=== PATIENT | female | born 1965 | race Caucasian/White ===

== ENCOUNTER → 2019-09-22 09:39 | Outpatient (CLI) | payer BC, SELFPAY ==
[2019-09-22 10:17] LABS: Add Manual Diff / Slide Review NO; Basophils Absolute Auto 100 /uL (0-100); Basophils Percent Auto 1.9 % (0-2); Eosinophils Absolute Auto 200 /uL (0-450); Eosinophils Percent Auto 4.7 % (2-4); Hematocrit 36.8 % (36-46); Hemoglobin 12.5 g/dL (12.0-16.0); Lymphocytes Absolute Auto 1100 /uL (1100-4500); Lymphocytes Percent Auto 33.5 % (25-40); Mean Corpuscular Hemoglobin 31.1 PG (26-34); Mean Corpuscular Volume 91.2 fL (80-100); Monocytes Absolute Auto 300 /uL (0-900); Monocytes Percent Auto 9.6 % (3-14); Neutrophils Absolute Auto 1700 /uL (1500-7000); Neutrophils Percent Auto 50.3 % (50-75); Platelet Count 244 X10^3/uL (150-400); Red Blood Cell Count 4.04 X10^6/uL (4.0-5.2); Red Cell Distribution Width 13.7 % (11.6-14.8); White Blood Cell Count 3.3 X10^3/uL (4.5-11.0)
[2019-09-22 10:45] LABS: Alanine Aminotransferase 32 IU/L (<35); Albumin Globulin Ratio 1.4 (1.0-2.8); Alkaline Phosphatase 37 U/L (38-126); Aspartate Aminotransferase 25 IU/L (14-36); BUN Creatinine Ratio 18.6 (6-22); Bilirubin Total 0.6 mg/dL (0.2-1.3); Blood Urea Nitrogen 13 mg/dL (7-17); Calcium 9.3 mg/dL (8.4-10.2); Carbon Dioxide 29 mmol/L (22-32); Chloride 102 mmol/L (98-107); Cholesterol 250 mg/dL (140-199); Estimated Glomerular Filt Rate > 60.0 mL/min (>60); Globulin 2.8 g/dL (1.7-4.1); Glucose 88 mg/dL (70-100); HDL Cholesterol 74 mg/dL (40-60); HEMOLYSIS < 15 (0-50); LDL Cholesterol Calculated 163 mg/dL (<100); Potassium 4.2 mmol/L (3.4-5.1); Sodium 137 mmol/L (137-145); Total Protein 6.8 g/dL (6.3-8.2); Triglycerides 66 mg/dL (35-150)
[2019-09-22 11:13] LABS: Thyroid Stimulating Hormone 1.12 uIU/mL (0.47-4.68)
[2019-09-22 11:43] LABS: Free T3, Triiodothyronine Free 3.04 pg/mL (2.77-5.27); Free T4, Direct Thyroxine 1.87 ng/dL (0.78-2.19)
== END ==
PROVIDERS: PCP Nurse Practitioner; Referring Provider Nurse Practitioner; Visit Provider Nurse Practitioner
DX: Z00.00 Encounter for general adult medical examination without abnormal findings (principal); Z12.39 Encounter for other screening for malignant neoplasm of breast; Z85.3 Personal history of malignant neoplasm of breast
CPT/HCPCS: 36415; 80053; 80061; 84439; 84443; 84481; 85025

== ENCOUNTER → 2019-11-01 09:16 | Outpatient (CLI) | payer BC, SELFPAY ==
--- NOTE | 2019-11-01 09:17 | DI.MG.S_ITS ---
BILATERAL DIGITAL SCREENING MAMMOGRAM 3D/2D WITH CAD POST LUMPECTOMY: 11/01/2019 CLINICAL: Routine screening. Personal history of left breast cancer. Family history of breast cancer. Comparison is made to exams dated: 05/19/2017 mammogram, 03/13/2016 mammogram, and 03/05/2016 mammogram - [facility]. There are scattered fibroglandular elements in both breasts. Current study was also evaluated with a Computer Aided Detection (CAD) system. There are new regional fine coarse punctate calcifications in the left breast at 1 o'clock posterior depth. No other significant masses, calcifications, or other findings are seen in either breast. IMPRESSION: INCOMPLETE: NEEDS ADDITIONAL IMAGING EVALUATION The new regional fine coarse punctate calcifications in the left breast are indeterminate. Mediolateral, spot magnification, and additional views are recommended. This exam was interpreted at Station ID: [id number]. NOTE: For mammograms, a report in lay terms will be sent to the patient. Approximately 15% of breast malignancies will not be visualized mammographically. In the management of a palpable breast mass, a negative mammogram must not discourage biopsy of a clinically suspicious lesion. Electronically Signed By: Yan odell/debra:11/01/2019 11:37:08 copy to: Tamara Hamlin letter sent: Additional Imaging Needed ACR BI-RADS Category 0: Incomplete 3340F
== END ==
PROVIDERS: PCP Nurse Practitioner; Referring Provider Nurse Practitioner; Visit Provider Internal Medicine Hematology & Oncology
DX: Z12.31 Encounter for screening mammogram for malignant neoplasm of breast (principal); Z85.3 Personal history of malignant neoplasm of breast; Z80.3 Family history of malignant neoplasm of breast
CPT/HCPCS: 77063; 77067

== ENCOUNTER → 2019-11-03 12:15 | Outpatient (CLI) | payer BC, SELFPAY ==
--- NOTE | 2019-11-03 | DI.MG.S_ITS ---
UNILATERAL LEFT DIGITAL DIAGNOSTIC MAMMOGRAM 3D/2D WITH ADDITIONAL VIEWS: 11/03/2019 CLINICAL: Additional evaluation requested from prior study. Comparison is made to exams dated: 11/01/2019 mammogram - [facility], 05/19/2017 mammogram, and 03/13/2016 mammogram - [facility]. There are scattered fibroglandular elements in left breast. Redemonstration of regional coarse, heterogeneous pleomorphic calcifications in the left breast at 1 o'clock posterior depth which are new since comparison mammogram dated 05/19/2017. These calcifications are noted in close vicinity to site of prior partial mastectomy in the upper, outer quadrant. No other significant masses or calcifications are seen in the breast. IMPRESSION: SUSPICIOUS OF MALIGNANCY Regional coarse heterogeneous pleomorphic calcifications in the left breast are suspicious of malignancy. A stereotactic biopsy is recommended. Findings and recommendations were discussed with the patient by Dr. Lopez during today's visit. This exam was interpreted at Station ID: [id number]. NOTE: For mammograms, a report in lay terms will be sent to the patient. Approximately 15% of breast malignancies will not be visualized mammographically. In the management of a palpable breast mass, a negative mammogram must not discourage biopsy of a clinically suspicious lesion. Electronically Signed By: Eduardo Salazar M.D. aty/:11/03/2019 13:01:41 copy to: Tamara Hamlin letter sent: Biopsy Required ACR BI-RADS Category 4: Suspicious abnormality 3344F
== END ==
PROVIDERS: PCP Nurse Practitioner; Referring Provider Internal Medicine Hematology & Oncology; Visit Provider Internal Medicine Hematology & Oncology
DX: R92.8 Other abnormal and inconclusive findings on diagnostic imaging of breast (principal); R92.1 Mammographic calcification found on diagnostic imaging of breast
CPT/HCPCS: 77065; G0279

== ENCOUNTER → 2019-11-23 13:40 | Outpatient (CLI) | payer BC, SELFPAY ==
--- NOTE | 2019-11-23 13:42 | DI.MRI.S_ITS ---
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 TECHNIQUE: The patient was placed prone in a dedicated breast imaging coil. Precontrast axial STIR and 3D FLASH without fat saturation sequences were obtained. Both before and after bolus injection of contrast, sequential 1-minute axial 3D FLASH with fat saturation sequences for 3 time points, with subtraction images and maximum intensity projections (MIP's) generated. Delayed sagittal FLASH images with fat saturation were also obtained. Computer-aided detection, including computer algorithm analysis of MRI image data for lesion detection and characterization, pharmacokinetic analysis, with further physician review for interpretation, was performed. COMPARISON: Outside Facility, MG, MM TOMOSYNTHESIS DIAGNOSTIC BI, 05/19/2017, 9:09. [facility], MG, MM SCREENING MAMMO BI, 11/01/2019, 9:35. Outside Facility, , MRI BREAST BILATERAL W / WO CONTRAST, 05/16/2016, 9:26. FINDINGS: Image quality: Excellent. There is mild-moderate background parenchymal enhancement. There is heterogeneous fibroglandular tissue in the bilateral breast. Right breast: No suspicious mass, non-mass enhancement, or architectural distortion. No skin or nipple abnormalities. There are a few small, scattered patchy areas of enhancement demonstrating delayed phase persistent kinetics which appears similar to prior breast MRI and likely related to more prominent areas of background parenchymal enhancement. Left breast: There are postoperative changes from prior left partial mastectomy with scattered foci of susceptibility artifact consistent with surgical clips noted on comparison mammograms. There is a linear peripherally enhancing tract leading from the lateral aspect of the left breast skin surface towards the upper outer quadrant with associated susceptibility artifact from recent biopsy marker. This is compatible with recent stereotactic guided breast biopsy of suspicious calcifications. However, there is also minimal adjacent non-mass enhancement with delayed phase washout kinetics. This area spans approximately 2.5 cm in transverse dimension (image 87, series 11) and 2.0 cm in anterior posterior dimension (image 88, series 11). It also measures approximately 1.5 cm in craniocaudal dimension (image 92, series 18). Although some of the enhancement is likely related to post biopsy changes, this region correlates closely with regional calcifications seen in the upper outer quadrant on comparison mammogram dated 11/01/2019. Small additional foci of enhancement noted in the periphery of post operative changes from previous partial mastectomy. There is also linear non-mass enhancement extending anteriorly from previous partial mastectomy site towards the nipple along the lateral left breast/3:00 axis measuring approximately 3.3 cm in anteroposterior dimension (image 66, series 11). Enhancement appears to come within 5 mm of the nipple. No definite nipple abnormalities seen. There is associated delayed phase washout kinetics. This linear area of non-mass enhancement appears more bulbous posteriorly measuring approximately 8 mm in transverse dimension (image 67, series 11) and 8 mm in craniocaudal dimension (image 91, series 18). Miscellaneous: No axillary or internal mammary chain adenopathy identified on either side. Visualized portions of the upper abdomen and chest appear unremarkable. Normal bone marrow signal intensity. IMPRESSION: KNOWN BIOPSY PROVEN MALIGNANCY 1. Postsurgical changes from previous partial left mastectomy with suspicious non-mass enhancement adjacent to the distal margins of recent stereotactic biopsy tract at the level of biopsied calcifications. Area of suspicious non-mass enhancement correlates closely with distribution of suspicious regional calcifications noted on recent comparison mammogram. Additionally, there are small foci of enhancement surrounding the peripheral margins of previous partial mastectomy with new suspicious linear non-mass enhancement of the lateral left breast extending from the anterior margins of previous partial mastectomy site towards the left nipple. Enhancement approaches less than 5 mm from the nipple without definite nipple abnormalities. Findings are compatible with tumor recurrence. 2. Right breast without MRI evidence for malignancy. COMMENT: The imaging literature indicates that a negative contrast breast MRI examination has a high sensitivity and a moderate specificity for detecting and excluding invasive carcinomas to a detection threshold of 3-5 mm; nonetheless, appropriate clinical and mammographic follow-up are recommended. MRI is not sensitive for detecting DCIS (ductal carcinoma in situ) and may not detect large invasive neoplasms that show only minimal enhancement such as mucinous carcinoma. If there are suspicious calcifications or clinically worrisome palpable masses, then biopsy should still be considered. Invasive neoplasms can be hidden by co-existent and benign enhancement caused by mastitis, hormone therapy effects, radiation therapy, , and recent biopsy or surgery. False positive examinations can occur in a number of circumstances, including breasts that have recently been subject to invasive procedures and those that contain atypical ductal hyperplasia, hormonally stimulated glandular tissue, fat necrosis, or radial scars. This exam was interpreted at Station ID: [id number]. Electronically Signed By: Eduardo Salazar M.D. aty/:11/23/2019 18:01:34 ACR BI-RADS Category 6: Known biopsy proven malignancy 3346F
== END ==
PROVIDERS: PCP Nurse Practitioner; Referring Provider Internal Medicine Hematology & Oncology; Visit Provider Internal Medicine Hematology & Oncology
DX: D05.12 Intraductal carcinoma in situ of left breast (principal)
CPT/HCPCS: 77049; A9579

== ENCOUNTER → 2020-01-21 14:38 | Outpatient (CLI) | payer BC, SELFPAY ==
[2020-01-22 07:25] LABS: COVID19 Sendout Not Detected (Not Detect)
== END ==
PROVIDERS: PCP Nurse Practitioner; Visit Provider Physician Assistant
DX: Z01.818 Encounter for other preprocedural examination (principal)
CPT/HCPCS: 87635

== ENCOUNTER 2020-01-24 08:37 | Day surgery (SDC) | payer BC, SELFPAY ==
[2020-01-20 08:47] VITALS: BMI 26.2
[2020-01-24] VITALS (9 sets, daily range): BP systolic 97–141; BP diastolic 61–91; PULSE 66–89; RESP 7–16; TEMP 36.1–37.7; O2SAT 93–100; BMI 26.2
--- NOTE | 2020-01-24 | PATH_ITS ---
[facility] Accession Number: [id number] . 01 Material submitted: . PART A: lymph node - LEFT SENTINEL NODE PART B: breast - LEFT BREAST PART C: breast - LEFT BREAST INFERIOR MARGIN . 01 Clinical history: . LT MASTECTOMY . 01 Diagnosis: A. Left [place] Lymph Node, Dissection: Seven lymph nodes, negative for malignancy (0/7). . B. Left Breast, Mastectomy: Ductal carcinoma in situ, with the following features: 1. Architectural patterns: Comedo, cribriform, and micropapillary. 2. Nuclear grade: High. 3. Necrosis: Present central (comedo-type necrosis). 4. Extent of DCIS: Present on more than one slide, corresponding to tissue slices 10 and 12-17, spanning approximately 39 mm. 5. Calcifications: Present, in association with ductal carcinoma in situ and benign breast tissue. 6. Resection margins: Negative; distance to margins as follows: a. Junction between superficial superior and Posterior: 2.2 mm. b. Superficial superior: 4 mm. c. Superficial inferior: More than 10 mm. 7. Prognostic markers (repeated on block B25): a. Estrogen receptor status: Negative (0% tumor cells staining, internal controls are present). 8. Nipple: No evidence of Paget disease. 9. Regional lymph node status (see part A): Seven sentinel lymph nodes, negative for malignancy (0/7). 10. Pathologic stage: pTis pN0(sn). 11. Additional findings: a. Atypical lobular hyperplasia/lobular carcinoma in situ are present. b. Focal atypical ductal hyperplasia and focal flat epithelial atypia are present. c. Skin is present and is within normal limits. d. Skeletal muscle is not present for evaluation. e. Background breast: Fibrocystic change including stromal fibrosis, sclerosing adenosis, usual ductal hyperplasia, columnar cell change/columnar cell hyperplasia, microcysts, apocrine metaplasia, and reactive changes. f. Biopsy site changes and scarring consistent with prior lumpectomy sites are present. . C. Left Breast, Inferior Margin, Excision: Focal atypical lobular hyperplasia. Fibrofatty breast parenchyma with stromal fibrosis, focal usual ductal hyperplasia, apocrine metaplasia, columnar cell change/columnar hyperplasia, and reactive changes. Negative for ductal carcinoma in situ and invasive malignancy, including margins assessment. MRV 01/27/2020 2004 Local . 01 Electronically signed: . Becky Wright MD, Pathologist NPI- [id number] . 01 Gross description: . (A) Received in formalin, labeled left sentinel node, are multiple pieces of gusman-yellow adipose tissue (3.5 x 3.0 x 0.5 cm in aggregate) containing a blue-stained 1.3 x 1.0 x 0.3 cm lymph node and multiple gusman lymph nodes (0.3 x 0.2 x 0.1 cm-0.7 x 0.4 x 0.2 cm). Section code: (A1) blue-stained lymph node, serially sectioned, entirely submitted; (A2) multiple intact lymph nodes; (A3) three bisected lymph nodes. . (B) Received: In formalin, labeled left breast, short stitch superior, long lateral. Specimen: Left simple mastectomy. Weight: 255 grams. Measurement: 4.5 cm anterior to posterior, 10.7 cm medial to lateral, and 11.0 cm superior to inferior. Skin Ellipse: Present, gusman-white, focally stained blue and otherwise unremarkable, measuring 6.2 x 4.5 cm. Nipple/Areola: 1.7 x 1.5 cm diameter everted nipple within a 3.5 x 3.0 cm diameter areola. No scar is identified. Axillary Tail: Absent. Margins: The specimen is oriented by surgeon with shot superior suture, long lateral suture. The posterior surface is smooth, covered by fascia, and is inked black. The anterior soft tissue margins are unremarkable, adjacent to the skin, are inked blue for superficial-superior and green for superficial-inferior. Slices: Serially sectioned medial to lateral into 19 slices. Lesions: No definitive nodules, masses or lesions are identified. A mcfarland-white, irregularly firm, gritty, ill-defined area (5.0 x 4.0 x 2.0 cm) is identified within slices 13-19 located less than 0.1 cm from the anterior-superior and anterior-inferior resection margins, and 0.5 cm from the posterior resection margin. A biopsy clip is identified within this tissue in slice 14. The remaining cut surface is yellow, lobular adipose tissue with focally densely fibrous areas throughout. Sections: B1: Nipple, bisected, entirely submitted. B2: Skin, roofing sales representative. B3: Slice 1, most medial slice, roofing sales representative perpendicular sections. B4: Slice 4, roofing sales representative fibrous tissue. B5, B6: Slice 5, roofing sales representative fibrous tissue. B7-B9: Slice 6, roofing sales representative fibrous tissue, submitted superior to inferior. B10, B11: Slice 7, roofing sales representative fibrous tissue. B12-B14: Slice 8, roofing sales representative fibrous tissue, submitted superior to inferior. B15-B16, B17: Slice 9, roofing sales representative fibrous tissue, submitted superior to inferior. B18-B19, B20: Slice 10, roofing sales representative fibrous tissue, submitted anterior to posterior and superior to inferior with B20 directly inferior to B18. B21-B22, B23: Slice 11, roofing sales representative fibrous tissue submitted anterior to posterior with B23 inferior but not adjacent. B24-B25, B26: Slice 12, roofing sales representative fibrous tissue, submitted superior to inferior with tissue from B26 at the most inferior margin not adjacent to the other tissue. This tissue and all preceding slices are not included in the measurement of the irregular fibrous gritty tissue. B27-B28, B29-B30: Slice 13, irregular fibrous gritty tissue, submitted anterior to posterior and superior to inferior, these slices are all adjacent. This tissue is directly medial to where the biopsy marker was found in slice 14. B31-B32, B33-B34: Slice 14, fibrous gritty tissue, location of biopsy marker, submitted anterior to posterior and superior to inferior, all slices are adjacent. B35, B36, B37-B38: Slice 15, roofing sales representative fibrous gritty tissue, slices not adjacent unless where indicated, tissue directly lateral to the biopsy marker found in slice 14. B39-B40: Slice 16, roofing sales representative fibrous gritty tissue, submitted superior to inferior. B41-B43: Slice 17, roofing sales representative fibrous gritty tissue, submitted superior to inferior. B44-B46: Slice 18, roofing sales representative fibrous gritty tissue, submitted superior to inferior. B47-B48: Slice 19, most lateral slice, roofing sales representative perpendicular sections. Additions: Additional tissue has been submitted from the following slices as follows: B49: Slice 15. B50: Slice 17. B51: Slice 18. B52: Slice 19. (ALEXIS:[id number]) Dr. Wright reviewed the gross on part B on 01/26/2020. (MNT:[id number]) . (C) Received in formalin, labeled left breast inferior margin, is an unoriented piece of gusman-yellow rubbery adipose tissue (28 grams, 8.5 x 5.0 x 1.2 cm) containing one smooth shiny fascia-covered surface. No skin or localization wire is present. The specimen is serially sectioned into 16 slices and has a gusman-yellow, lobular, unremarkable cut surface. No nodules, masses or lesions are identified. The smooth surface is inked purple and the remaining surface is inked blue. Section code: (C1-C2) slice 1, perpendicularly sectioned; (C3-C4) slice 2; (C5-C6) slice 3; (C7-C8) slice 4; (C9-C10) slice 5; (C11-C12) slice 6; (C13-C14) slice 7; (C15-C16) slice 8; (C17-C18) slice 9; (C19-C20) slice 10; (C21-C22) slice 11; (C23-C24) slice 12; (C25-C26) slice 13; (C27-C28) slice 14; (C29-C30) slice 15; (C31-C32) slice 16, perpendicularly sectioned. Specimen entirely submitted. . Note: Approximate total fixation time in formalin for all specimens is calculated to be 41 hours 30 minutes, calculated using a collection date of 01/24/2020 with no collection time given. (ALEXIS:[id number]) /MRV 01/27/2020 [facility] Local . 01 Microscopic: . Block B25. A focus of atypical single cells is evaluated with p63 with appropriately staining external controls. While most of the focus disappears on the tissue section, p63 is retained in the area of interest, excluding microinvasive carcinoma. Deeper H/E levels are also examined. Estrogen receptor is repeated on block B25 (given the reported absence of internal controls on the index biopsy) and DCIS is negative for ER with positive internal controls. . Blocks B18, B46 and C10: E-cadherin, and beta catenin on B18 only, immunostains are performed in order to assess involvement of the lactiferous ducts by ductal versus lobular in situ neoplasia (B18), margins assessment (B46), and presence of lobular neoplasia (C10); the areas of interest demonstrate findings in support of involvement of the lactiferous ducts by DCIS and atypical lobular hyperplasia, and focal atypical lobular hyperplasia in part C. . * This test was developed and its performance characteristics determined by [employer]. It has not been cleared or approved by the U.S. Food and Drug Administration. The FDA has determined that such clearance or approval is not necessary. This test is used for clinical purposes. It should not be regarded as investigational or for research. . 01 Pathologist provided ICD-10: D05.12, D05.02 . 01 CPT . 026902, 318409, 904697, [id number], [id number] Performed at: 01 [facility] [address] [place] [address], [place], [place] [id number] MD Yan Lal MD Phone: [phone]
--- NOTE | 2020-01-24 08:40 | DI.NM.S_ITS ---
PROCEDURE: NM SENTINEL NODE W IMAGING RADIOPHARMACEUTICAL: 0.5-1.0 mCi Millipore filtered Tc-99m sulfur colloid. INDICATIONS: preop TECHNIQUE: The area around the nipple was prepped and draped in a sterile fashion. Tc-99m sulfur colloid was injected intra-dermally in the outer edge of the areola in the left breast. Images were obtained subsequently. A body contour outline was obtained. FINDINGS: There are 4-5 lymph node(s) in the ipsilateral axilla. IMPRESSION: 4-5 left axillary lymph nodes are identified. Dictated by: Singh Lopez M.D. on 01/24/2020 at 12:38 Approved by: Singh Lopez M.D. on 01/24/2020 at 12:41
[2020-01-24] MEDS: LACTATED RINGERS 1,000 ML 100 ML IV ×2 (10:10→13:40)
--- NOTE | 2020-01-24 10:49 | PM.HP.1 ---
History of Present Illness History of Present Illness Date Patient Seen: 01/24/20 Time Patient Seen: 10:49 Chief complaint: [id number] Lt Mastectomy Narrative: Patient is a 54-year-old female who is here for a left mastectomy and sentinel lymph node biopsy. She has a diagnosis of recurrence left breast ductal carcinoma in situ. Please refer to the H& P from December of 2019 for further detail. There has been no interval change in her health. Patient History Medical History Alcohol use (Acute) DCIS (ductal carcinoma in situ) (Acute) Malaria (Acute ~2005) Retinal detachment (Acute ~2015) Snoring (Acute) Soft palate edema (Acute) Thyroid nodule (Acute ~2017) Surgical History Anesthesia (Resolved) Cataract extraction status, left eye (Acute) History of discectomy (Resolved ~2009) History of left knee surgery (Resolved ~2000) History of lumpectomy (Resolved ~2016) Retinal detachment (Resolved) Family & Social History Family History Father Prostate cancer Hypertension Dementia Mother Pulmonary embolism Grandfather History of heart disease Grandfather History of emphysema Grandmother Hypertension Social History: household members spouse,children Prior Living Arrangements House Safety & Behavioral: Feels Safe in Current Yes Environment Been Physically Hurt or No Threatened By a Person Suicidal Ideation Description None Suicide Plan Description No Plan Tobacco & Substance use: Smoking Status Never smoker alcohol intake current alcohol intake frequency 3 or more drinks per day Substance Use Type does not use Meds Home Medications and Allergies Home Medications Medication Instructions Recorded Confirmed Type cholecalciferol (vitamin D3) 1,000 unit PO DAILY 10/27/19 01/20/20 History Allergies Allergy/AdvReac Type Severity Reaction Status Date / Time No Known Drug Allergies Allergy Verified 01/24/20 09:04 Review of Systems Review of Systems Narrative: A 10 point review of systems is negative except as noted in the HPI Exam Vital Signs (past 8 hours): - 01/24/20 08:57 Temperature 99.9 F H Pulse Rate 89 Respiratory Rate 16 Blood Pressure 141/91 H Pulse Oximetry 99 Oxygen Delivery Method Room Air Oxygen Flow Rate 0 Narrative Exam Narrative: General-no acute distress, well nourished HEENT-moist mucous membranes, no scleral icterus Neck-supple, no lymphadenopathy Chest- non labored respirations, clear to auscultation bilaterally Cardiac-regular rate no peripheral edema Abdomen-soft, nontender, non distended Extremities-warm, well perfused Neurological-alert and oriented, no focal deficits Assessment & Plan Assessment & Plan narrative: 54-year-old woman with recurrent left breast ductal carcinoma in situ here for a left mastectomy and sentinel lymph node biopsy. We discussed the technical nature of the operation him the expected postoperative course and the as surgical risks including bleeding infection seroma recurrence axillary nerve injury. Her questions have been answered she is in agreement with this plan will proceed to the operating room. COVID-19 COVID-19 status: Negative Result date/Date tested (Pos, Neg/Pending): 01/20/20
[2020-01-24] MEDS: CEFAZOLIN 2 GM/100 ML FROZ.PIGGY IV (11:05)
[2020-01-24] MEDS: METHYLENE BLUE 50 MG/10 ML VIAL INJ (11:19)
[2020-01-24] MEDS: BUPIVACAINE 0.25% (PF) VIAL 30 ML INJ (11:20)
--- NOTE | 2020-01-24 11:36 | SUR.OPER ---
Supine on padded OR bed, head on pillow, arms secured on padded arm boards at <90 degrees abduction, legs uncrossed, safety belt at thigh, tape over blanket over lower legs.
[2020-01-24] MEDS: ACETAMINOPHEN IV 1,000 MG/100 ML VIAL 400 MG IV (12:10)
--- NOTE | 2020-01-24 13:41 | P.OP_ITS ---
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 Specimen(s): other (Left breast, left sentinel node(s), left breast inferior margin) Estimated Blood Loss (mL): 50 Procedure in detail: Patient was brought to the operating room placed supine on the table. Bilateral lower extremity compression devices were applied. She received 2 g of Ancef prior to skin incision. She was intubated with an endotracheal tube. She was then prepped and draped in sterile fashion. Time- out was performed ensure the correct patient procedure necessary equipment within the operating room. I began with the left sentinel lymph node dissection. She had been previously injected with radio labeled colloid. I injected 2 mL of methylene blue into the periareolar tissue and massaged it into the breast for 5 minutes. Using a hand held gamma probe I localized transcutaneously the are of increased radioa ctivity. A linear incision in the hair-bearing area of the left axilla and the subcutaneous tissues were divided with electrocautery. The left axillary tissue was carefully dissected towards the area of maximal radioactivity. A sentinel lymph node was identified its identity confirmed by its blue appearance. I was ligated with 3-0 silk and transected sharply. I returned the gamma probe to the field and there continued to be increased radioactivity and a second sentinel lymph node was identified and dissected in similar fashion. The axilla was inspected for hemostasis and then the subcutaneous tissue was closed with the 3 0 Vicryl suture and skin closed with 4 Monocryl followed by Demand. Next the left mastectomy was performed. An elliptical incision around the nipple areola complex was made with the knife. The subcutaneous tissue was divided with electrocautery. Skin flaps were raised to separate the breast tissue from the skin along the subdermal plexus. The dissection was extended superior to the clavicle, medial to the sternum, inferior the the inframamary fold and lateral to the anterior border of the latisimus dorsi. Next the breast tissue was from the underlying pectoralis fascia. The breast was passed off the field marked short stitch superior long stitch lateral. I inspected the flaps and the inferior flap was slightly thicken then I wanted so I removed a a margin of the inferior flap which was passed off the field labeled as inferior margin. A 19 [place] drain was placed into the cavity and secured. The wound was copiously irrigated and homeostasis was ensured. The mastectomy was closed with 3 0 Vicryl for the subcutaneous tissue and the skin was closed with 4 0 Monocryl followed by the application of Dermabond. Patient tolerated procedure well she emerged from anesthesia was extubated and transferred to recovery room in stable condition. Complications: none Post-operative Condition: stable
[2020-01-24] MEDS: OXYCODONE IR 5 MG TABLET PO (14:14)
--- NOTE | 2020-01-24 14:50 | SUR.PHASEII ---
Assumed care from MIMI Freed. Dr. Orozco to bedside, talked to pt. Pt wanting to sleep. Call alonso at bedside.
--- NOTE | 2020-01-24 15:29 | SUR.PHASEII ---
Pt ready to go home, assisted to dress. Dressings remained c/d/i. Bulb emptying instrucyted, pt voiced an understanding. Awaiting pt's to return.
== END 2020-01-24 16:00 | disposition home or self-care (01) ==
LOC: OR 08:40 → AC 12:00
PROVIDERS: PCP Nurse Practitioner; Referring Provider Surgery; Visit Provider Surgery
PROC: 0HTU0ZZ Resection of Left Breast, Open Approach (ICD-10-PCS; CPT 19303; principal; 2020-01-24 11:15)
DX: D05.12 Intraductal carcinoma in situ of left breast (principal); D05.02 Lobular carcinoma in situ of left breast
CPT/HCPCS: 19303; 38500; 78195; A9541; J0131; J0690; J1100; J1170; J2250; J2405; J2704; J3010; Q9968

== ENCOUNTER → 2020-10-13 10:50 | Outpatient (CLI) | payer BC, SELFPAY ==
[2020-10-13 11:17] LABS: Add Manual Diff / Slide Review NO; Basophils Absolute Auto 100 /uL (0-100); Basophils Percent Auto 1.4 % (0-2); Eosinophils Absolute Auto 200 /uL (0-450); Eosinophils Percent Auto 3.2 % (2-4); Hematocrit 38.1 % (36-46); Hemoglobin 12.7 g/dL (12.0-16.0); Lymphocytes Absolute Auto 1500 /uL (1100-4500); Lymphocytes Percent Auto 29.2 % (25-40); Mean Corpuscular HGB Conc 33.3 % (30-36); Mean Corpuscular Hemoglobin 30.4 PG (26-34); Mean Corpuscular Volume 91.3 fL (80-100); Monocytes Absolute Auto 400 /uL (0-900); Monocytes Percent Auto 7.9 % (3-14); Neutrophils Absolute Auto 3000 /uL (1500-7000); Neutrophils Percent Auto 58.3 % (50-75); Platelet Count 238 X10^3/uL (150-400); Red Blood Cell Count 4.18 X10^6/uL (4.0-5.2); Red Cell Distribution Width 13.1 % (11.6-14.8); White Blood Cell Count 5.1 X10^3/uL (4.5-11.0)
[2020-10-13 11:46] LABS: Alanine Aminotransferase 21 IU/L (<35); Albumin 4.1 g/dL (3.5-5.0); Albumin Globulin Ratio 1.4 (1.0-2.8); Alkaline Phosphatase 40 U/L (38-126); Aspartate Aminotransferase 24 IU/L (14-36); BUN Creatinine Ratio 26.1 (6-22); Bilirubin Total 0.5 mg/dL (0.2-1.3); Blood Urea Nitrogen 23 mg/dL (7-17); Calcium 9.1 mg/dL (8.4-10.2); Carbon Dioxide 29 mmol/L (22-32); Chloride 103 mmol/L (98-107); Estimated Glomerular Filt Rate > 60.0 mL/min (>60); Glucose 93 mg/dL (70-100); HEMOLYSIS < 15 (0-50); Potassium 4.1 mmol/L (3.4-5.1); Sodium 136 mmol/L (137-145); Total Protein 7.1 g/dL (6.3-8.2)
== END ==
PROVIDERS: PCP Nurse Practitioner; Referring Provider Internal Medicine Hematology & Oncology; Visit Provider Internal Medicine Hematology & Oncology
DX: D05.10 Intraductal carcinoma in situ of unspecified breast (principal)
CPT/HCPCS: 36415; 80053; 85025

== ENCOUNTER → 2020-11-12 11:19 | Outpatient (CLI) | payer BC, SELFPAY ==
--- NOTE | 2020-11-12 11:19 | DI.MG.S_ITS ---
UNILATERAL RIGHT DIGITAL SCREENING MAMMOGRAM 3D/2D WITH CAD POST MASTECTOMY: 11/12/2020 CLINICAL: Routine screening. Personal history of left breast cancer. Family history of breast cancer. Comparison is made to exams dated: 11/23/2019 breast MRI, 11/01/2019 mammogram - [facility], and 05/19/2017 mammogram - [facility]. The tissue of right breast is heterogeneously dense. This may lower the sensitivity of mammography. Current study was also evaluated with a Computer Aided Detection (CAD) system. There are benign calcifications in the right breast. No significant masses, calcifications, or other findings are seen in the breast. There has been no significant interval change. IMPRESSION: BENIGN There is no mammographic evidence of malignancy. A 1 year screening mammogram is recommended. This exam was interpreted at Station ID: [id number]. NOTE: For mammograms, a report in lay terms will be sent to the patient. Approximately 15% of breast malignancies will not be visualized mammographically. In the management of a palpable breast mass, a negative mammogram must not discourage biopsy of a clinically suspicious lesion. Electronically Signed By: Yan odell/debra:11/12/2020 14:27:40 copy to: [facility] TOLLIVER letter sent: Normal Exam ACR BI-RADS Category 2: Benign Finding(s) 3342F
== END ==
PROVIDERS: PCP Nurse Practitioner; Referring Provider Internal Medicine Hematology & Oncology; Visit Provider Internal Medicine Hematology & Oncology
DX: Z12.31 Encounter for screening mammogram for malignant neoplasm of breast (principal); D05.12 Intraductal carcinoma in situ of left breast; Z80.3 Family history of malignant neoplasm of breast
CPT/HCPCS: 77063; 77067

== ENCOUNTER → 2021-04-30 07:06 | Outpatient (CLI) | payer BC, SELFPAY ==
--- NOTE | 2021-04-30 07:09 | DI.US.S_ITS ---
PROCEDURE: US PELVIC COMPLETE INDICATIONS: PMB TECHNIQUE: Real-time scanning was performed of the pelvic organs, with image documentation. Additional endovaginal scanning was necessary due to incomplete visualization of the adnexal and endometrial structures by transabdominal scanning. COMPARISON: None. FINDINGS: Uterus: The uterus measures 8.0 x 4.1 x 5.7 centimeters. Endometrial thickness is 3.3 millimeters. Multiple uterine fibroids are seen. An intramural medial posterior fibroid measures 1.9 x 1.3 x 2.2 centimeters. A right anterior intramural fibroid measures 1.6 x 1.1 x 1.6 centimeters. No cervical polyp is identified. Ovaries: The right ovary is not seen. The left ovary measures 2.1 x 1.0 x 2.1 centimeters. Other: No pathologic free abdominal or pelvic fluid. IMPRESSION: 1. 2 intramural uterine fibroids as above. 2. No acute abnormality. Dictated by: Miguelangel Fang M.D. on 04/30/2021 at 15:07 Approved by: Miguelangel Fang M.D. on 04/30/2021 at 15:09
[2021-04-30 09:13] LABS: Cholesterol 270 mg/dL (140-199); HDL Cholesterol 106 mg/dL (40-60); LDL Cholesterol Calculated 152 mg/dL (<100); Triglycerides 61 mg/dL (35-150)
[2021-04-30 09:29] LABS: Follicle Stimulating Hormone 74.7 mIU/mL
[2021-04-30 09:34] LABS: Free T4, Direct Thyroxine 1.13 ng/dL (0.78-2.19)
[2021-04-30 09:48] LABS: Thyroid Stimulating Hormone 1.38 uIU/mL (0.47-4.68)
== END ==
PROVIDERS: PCP Nurse Practitioner; Referring Provider Nurse Practitioner; Visit Provider Nurse Practitioner
DX: Z00.00 Encounter for general adult medical examination without abnormal findings (principal); N95.0 Postmenopausal bleeding; D25.1 Intramural leiomyoma of uterus
CPT/HCPCS: 36415; 76830; 76856; 80061; 83001; 84439; 84443; 84481

== ENCOUNTER → 2021-05-15 09:10 | Outpatient (CLI) | payer BC, SELFPAY ==
[2021-05-15 11:22] LABS: COVID19 -Nasal RAPID Negative (Negative)
== END ==
PROVIDERS: PCP Nurse Practitioner; Visit Provider Surgery
DX: Z01.812 Encounter for preprocedural laboratory examination (principal); Z20.822 Contact with and (suspected) exposure to COVID-19
CPT/HCPCS: 87635; C9803

== ENCOUNTER 2021-05-16 12:29 | Day surgery (SDC) | payer BC, SELFPAY ==
--- NOTE | 2021-05-16 | PATH_ITS ---
[facility] Accession Number: [id number] . 01 Material submitted: . sigmoid colon - SIGMOID COLON POLYP X2 . 02 Diagnosis: Sigmoid Colon Polyps, Biopsies: Fragments of tubular adenoma (two polyps removed). MRV 05/20/2021 1345 Local . 02 Electronically signed: . Carlos Ocampo MD, PhD, Pathologist NPI- [id number] . 01 Gross description: . SIGMOID COLON POLYP X2: Received in formalin are multiple fragment(s) of gusman, soft tissue measuring 1.0 x 0.6 x 0.2 cm in aggregate submitted entirely in 1 cassette(s) /MARIA LUZ 05/17/2021 0224 Local . 02 Pathologist provided ICD-10: D12.5 . 02 CPT . 669683 Performed at: 01 [facility] Cyt[facility] [address] [id number] MD Yan Lal MD Phone: [phone] Performed at: 02 [facility] [address] [place], [place] [id number] MD Cally King MD Phone: [phone]
[2021-05-16 12:46] VITALS: BP 125/78; PULSE 92; RESP 16; TEMP 36.8; O2SAT 98; BMI 22.4
--- NOTE | 2021-05-16 13:54 | PM.HP.1 ---
History of Present Illness History of Present Illness Date Patient Seen: 05/16/21 Time Patient Seen: 13:55 Chief complaint: SCREENING COLONOSCOPY Narrative: The patient presents for colorectal sreening. They have never had any previous examination for such. No personal or family history of colon cancer. On further history denies any recent gastrointestinal symptoms. No nausea, vomiting, abdominal pain, loss of appetite, unexplained weight loss, change in bowel habits, diarrhea, constipation, melena, hematochezia, or bright red blood per rectum. Patient History Medical History Alcohol use DCIS (ductal carcinoma in situ) Malaria (~2005) Retinal detachment (~2015) Snoring Soft palate edema Thyroid nodule (~2017) Witnessed episode of apnea Surgical History Anesthesia Cataract extraction status, left eye History of discectomy (~2009) History of left knee surgery (~2000) History of lumpectomy (~2016) Retinal detachment Family & Social History Family History Father Prostate cancer Hypertension Dementia Mother Pulmonary embolism Grandfather History of heart disease Grandfather History of emphysema Grandmother Hypertension Social History: household members spouse,children Tobacco & Substance use: Smoking Status Never smoker alcohol intake current alcohol intake frequency 3 or more drinks per day Substance Use Type does not use Meds Home Medications and Allergies Home Medications Medication Instructions Recorded Confirmed Type No Known Home Medications 05/16/21 05/16/21 History Allergies Allergy/AdvReac Type Severity Reaction Status Date / Time No Known Drug Allergies Allergy Verified 05/16/21 12:46 Exam Vital Signs (past 8 hours): - 05/16/21 12:46 Temperature 98.2 F Pulse Rate 92 H Respiratory Rate 16 Blood Pressure 125/78 Pulse Oximetry 98 Oxygen Delivery Method Room Air Narrative Exam Narrative: Constitutional-She is oriented to person, place and time. No apparent distress Cardiovascular- regular rate, no peripheral edema Pulmonary-unlabored respiratory effort, no audible wheezing Abdominal-soft, non-tender, non-distended Musculoskeletal-no cyanosis or clubbing Neurological-nonfocal, normal strength throughout, Skin-warm and dry Assessment & Plan Assessment & Plan narrative: The patient requires colorectal screening and colonoscopy is recommended. Technical details were discussed. Risks, benefits, alternatives explained. Risks including but not limited to myocardial infarction, aspiration, bleeding, pain, missed lesion, incomplete examination, need for further radiographic studies, colonic perforation, and need for major abdominal surgery were discussed. All questions were answered to their satisfaction, and they are in agreement with this plan. Time Spent With Patient Critical Care time: I spent a total of [] minutes of critical care time on this patient's care today; this time is exclusive of procedural time.
[2021-05-16] MEDS: MIDAZOLAM 5 MG/5 ML VIAL IV (14:13)
[2021-05-16] MEDS: fentaNYL 250 MCG/5 ML INJ IV (14:15)
--- NOTE | 2021-05-16 14:25 | PM.OP.COLON ---
Operative Date/Time/Diagnoses Date of procedure: 05/16/21 Time of procedure: 14:25 Pre-op diagnosis: Screening Post-op diagnosis: same Procedure & Clinicians Study performed: Colonoscopy Same procedure as scheduled: Yes Indications: Screening Surgeon: Kalpesh Orozco Procedure Notes Procedure in detail: Medications: Conscious sedation using 9mg IV midazolam and 250mcg IV of fentanyl The history and physical was performed/updated and the patient is ASA class is 2. The procedure was discussed in detail with the patient. Potential risks complications including infection, bleeding, missed diagnosis, perforation, need for surgery, and were explained. Their questions were answered and informed consent was obtained. Patient was brought to the procedure room and placed standard monitoring equipment. The patient's vital signs were monitored continuously throughout the entire procedure. Prior to starting time-out was performed. The patient was placed in the left lateral recumbent position. Procedural sedation was administered. Examination began with a thorough inspection of the perianal area there was no evidence of fissures, fistulae, external hemorrhoids or cutaneous malignancy. The colonoscopy scope was then placed into the anal canal and was advanced to the cecum, which was identified by the ileocecal valve, the appendiceal orifice and the confluence of the taenia. The scope was then slowly withdrawn examining colon thoroughly in all directions, irrigating it of any residual stool. FINDINGS 1. Two 5 mm polyps in the sigmoid colon removed with biopsy forceps. 2. Tortuous colon The patient tolerated the procedure well. They will be discharged once criteria are met. The prep was of good/excellent quality. The withdrawl time was 7 minutes. The sedation time was 23 minutes. Specimen(s): other (Sigmoid colon) Complications: none Impression: Colonic polyps Post-procedure Recommendations: Colonoscopy in 5 years Disposition: same day surgery
[2021-05-16 14:28] VITALS: BP 113/62; PULSE 73; RESP 13; TEMP 36.3; O2SAT 95
[2021-05-16 14:33] VITALS: BP 103/53; PULSE 72; RESP 12; O2SAT 97
[2021-05-16 14:38] VITALS: BP 114/56; PULSE 81; RESP 12; O2SAT 97
[2021-05-16 14:45] VITALS: BP 127/81; PULSE 90; RESP 16; TEMP 36.3; O2SAT 99
--- NOTE | 2021-05-16 14:48 | SUR.PHASEII ---
Pt transferred to [facility]. SBAR report to Rae LE
[2021-05-16 14:50] VITALS: BP 127/81; PULSE 79; RESP 16; TEMP 36.6; O2SAT 99
== END 2021-05-16 15:10 | disposition home or self-care (01) ==
PROVIDERS: PCP Nurse Practitioner; Referring Provider Surgery; Visit Provider Surgery
PROC: 0DJD8ZZ Inspection of Lower Intestinal Tract, Via Natural or Artificial Opening Endoscopic (ICD-10-PCS; CPT 45378; principal; 2021-05-16 13:45)
DX: Z12.11 Encounter for screening for malignant neoplasm of colon (principal); D12.5 Benign neoplasm of sigmoid colon
CPT/HCPCS: 45380; 45378; 99152; J2250; J3010

== ENCOUNTER → 2021-11-26 14:47 | Outpatient (CLI) | payer BC, SELFPAY ==
--- NOTE | 2021-11-26 14:48 | DI.MG.S_ITS ---
UNILATERAL RIGHT DIGITAL SCREENING MAMMOGRAM 3D/2D WITH CAD POST MASTECTOMY: 11/26/2021 CLINICAL: Routine screening. Personal history of right breast cancer. Family history of breast cancer. Comparison is made to exams dated: 11/12/2020 mammogram, 11/01/2019 mammogram - [facility], and 05/19/2017 mammogram - [facility]. The tissue of right breast is heterogeneously dense. This may lower the sensitivity of mammography. Current study was also evaluated with a Computer Aided Detection (CAD) system. No significant masses, calcifications, or other findings are seen in the breast. There has been no significant interval change. IMPRESSION: NEGATIVE There is no mammographic evidence of malignancy. A 1 year screening mammogram is recommended. This exam was interpreted at Station ID: [id number]. NOTE: For mammograms, a report in lay terms will be sent to the patient. Approximately 15% of breast malignancies will not be visualized mammographically. In the management of a palpable breast mass, a negative mammogram must not discourage biopsy of a clinically suspicious lesion. Electronically Signed By: Tahir wagner/debra:11/26/2021 16:17:56 copy to: [facility] TOLLIVER letter sent: Normal Exam ACR BI-RADS Category 1: Negative 3341F
== END ==
PROVIDERS: PCP Nurse Practitioner; Referring Provider Nurse Practitioner; Visit Provider Nurse Practitioner
DX: Z12.31 Encounter for screening mammogram for malignant neoplasm of breast (principal); D05.12 Intraductal carcinoma in situ of left breast; Z80.3 Family history of malignant neoplasm of breast
CPT/HCPCS: 77063; 77067

== ENCOUNTER → 2021-12-13 14:53 | Outpatient (CLI) | payer BC, SELFPAY ==
--- NOTE | 2021-12-13 14:54 | DI.US.S_ITS ---
PROCEDURE: US THYROID INDICATIONS: Soft lesion at base of thyroid right hand side TECHNIQUE: Real-time scanning was performed of the thyroid gland, with image documentation. COMPARISON: None. FINDINGS: Right: Thyroid lobe measures 5.2 x 1.3 x 1.6 cm, and is diffusely heterogeneous in echotexture. Left: Thyroid lobe measures 5.2 x 1 1 by point 5 cm, and is diffusely heterogeneous in echotexture. Isthmus: 2.1 mm thick. Nodule number: 1 Location: Left superior Size: 0.6 x 0.4 x 0.5 cm. Composition: Predominantly cystic Echogenicity: Predominantly anechoic Shape: wider than tall. Margins: Smooth Echogenic foci: None Total points: 0 ACR TI-RADS category: Benign Nodule number: 2 Location: Left inferior Size: 1.9 x 1.2 x 1.3 cm. Composition: Solid Echogenicity: Predominantly isoechoic Shape: wider than tall. Margins: Smooth Echogenic foci: Not requested. Total points: 3 ACR TI-RADS category: Mildly suspicious Nodule number: 3 Location: Right mid Size: 1.0 x 0.6 x 0.8 cm. Composition: Solid Echogenicity: Heterogeneous Shape: wider than tall. Margins: Smooth Echogenic foci: Not requested. Total points: 3 ACR TI-RADS category: Mildly suspicious Nodule number: 4 Location: Right inferior Size: 0.5 x 0.5 x 0.5 cm. Composition: Predominantly solid Echogenicity: Predominantly isoechoic Shape: wider than tall. Margins: Smooth Echogenic foci: Not requested. Total points: 3 ACR TI-RADS category: Mildly suspicious IMPRESSION: Small bilateral thyroid nodules. Recommend continued followup ultrasound as detailed below. ACR TI-RADS definitions and recommendations: TI-RADS 1 (benign): 0 points. FNA not needed. TI-RADS 2 (not suspicious): 2 points. FNA not needed. TI-RADS 3 (mildly suspicious): 3 points. * FNA if 2.5 cm or larger, follow up if 1.5 cm or larger (at 1, 3, and 5 years). TI-RADS 4 (moderately suspicious): 4-6 points. * FNA if 1.5 cm or larger, follow up if 1 cm or larger (at 1, 2, 3, and 5 years). TI-RADS 5 (highly suspicious): 7 points or more. * FNA if 1 cm or larger, follow up if 0.5 cm or larger (every year for 5 years). Dictated by: Franco HURLEY Interpreted: Jose M Fang MD on 12/13/2021 at 15:55 Transcribed by: ANTHONY on 12/13/2021 at 15:58 Approved by: Miguelangel Fang M.D. on 12/13/2021 at 18:10
== END ==
PROVIDERS: PCP Nurse Practitioner; Referring Provider Nurse Practitioner; Visit Provider Nurse Practitioner
DX: E04.2 Nontoxic multinodular goiter (principal)
CPT/HCPCS: 76536

== ENCOUNTER → 2023-01-27 09:27 | Outpatient (CLI) | payer BC, SELFPAY | PROVIDERS: PCP Nurse Practitioner; Visit Provider Nurse Practitioner | DX: N89.8 Other specified noninflammatory disorders of vagina (principal) | CPT/HCPCS: 87070; 87205 ==

== ENCOUNTER → 2023-01-27 09:34 | Outpatient (CLI) | payer BC, SELFPAY ==
[2023-01-27 10:26] LABS: Add Manual Diff / Slide Review NO; Basophils Absolute Auto 100 /uL (0-100); Basophils Percent Auto 1.4 % (0-2); Eosinophils Absolute Auto 100 /uL (0-450); Eosinophils Percent Auto 2.7 % (2-4); Hematocrit 37.8 % (36-46); Lymphocytes Absolute Auto 1400 /uL (1100-4500); Lymphocytes Percent Auto 34.5 % (25-40); Mean Corpuscular HGB Conc 34.5 % (30-36); Mean Corpuscular Hemoglobin 30.9 PG (26-34); Mean Corpuscular Volume 89.6 fL (80-100); Monocytes Absolute Auto 300 /uL (0-900); Monocytes Percent Auto 8.1 % (3-14); Neutrophils Absolute Auto 2200 /uL (1500-7000); Neutrophils Percent Auto 53.3 % (50-75); Platelet Count 237 X10^3/uL (150-400); Red Blood Cell Count 4.22 X10^6/uL (4.0-5.2); Red Cell Distribution Width 12.9 % (11.6-14.8); White Blood Cell Count 4.2 X10^3/uL (4.5-11.0)
[2023-01-27 10:40] LABS: Alanine Aminotransferase 22 IU/L (<35); Albumin 4.3 g/dL (3.5-5.0); Albumin Globulin Ratio 1.4 (1.0-2.8); Alkaline Phosphatase 51 U/L (38-126); Aspartate Aminotransferase 25 IU/L (14-36); Bilirubin Total 0.9 mg/dL (0.2-1.3); Blood Urea Nitrogen 19 mg/dL (7-17); Carbon Dioxide 29 mmol/L (22-32); Chloride 102 mmol/L (98-107); Cholesterol 291 mg/dL (140-199); Estimated Glomerular Filt Rate > 60 mL/min (>60); Glucose 100 mg/dL (70-100); HDL Cholesterol 106 mg/dL (40-60); HEMOLYSIS < 15 (0-50); LDL Cholesterol Calculated 174 mg/dL (<100); Potassium 4.6 mmol/L (3.4-5.1); Sodium 137 mmol/L (137-145); Total Protein 7.3 g/dL (6.3-8.2); Triglycerides 53 mg/dL (35-150)
[2023-01-27 10:57] LABS: Creatinine Urine Random 42.3 mg/dL; Microalbumin Urine Random < 0.6 mg/dL (0-1.6)
[2023-01-27 11:06] LABS: Free T3, Triiodothyronine Free 4.23 pg/mL (2.77-5.27)
[2023-01-27 11:19] LABS: Thyroid Stimulating Hormone 1.25 uIU/mL (0.47-4.68)
[2023-01-27 11:43] LABS: HIV 1 & 2 Ab/Ag 4th Gen Combo NEGATIVE (NEGATIVE); Hep C Virus Ab w/Reflex Quant NEGATIVE s/c (NEGATIVE)
== END ==
PROVIDERS: PCP Nurse Practitioner; Referring Provider Nurse Practitioner; Visit Provider Nurse Practitioner
DX: Z00.00 Encounter for general adult medical examination without abnormal findings (principal); Z11.59 Encounter for screening for other viral diseases; Z11.4 Encounter for screening for human immunodeficiency virus [HIV]; N89.8 Other specified noninflammatory disorders of vagina
CPT/HCPCS: 36415; 80053; 80061; 82043; 82570; 84439; 84443; 84481; 85025; 86803; 87070; 87205; 87389

== ENCOUNTER → 2023-02-03 07:11 | Outpatient (CLI) | payer BC, SELFPAY ==
--- NOTE | 2023-02-03 07:12 | DI.MG.S_ITS ---
UNILATERAL RIGHT DIGITAL SCREENING MAMMOGRAM 3D/2D WITH CAD: 02/03/2023 CLINICAL: Routine screening. Personal history of left breast cancer. Comparison is made to exams dated: 11/26/2021 mammogram and 11/12/2020 mammogram - [facility]. The right breast is heterogeneously dense, which may obscure small masses (category c / 51-75% glandular tissue). Current study was also evaluated with a Computer Aided Detection (CAD) system. No significant masses, calcifications, or other findings are seen in the breast. There has been no significant interval change. IMPRESSION: NEGATIVE There is no mammographic evidence of malignancy. A 1 year screening mammogram is recommended. This exam was interpreted at Station ID: [id number]. NOTE: For mammograms, a report in lay terms will be sent to the patient. Approximately 15% of breast malignancies will not be visualized mammographically. In the management of a palpable breast mass, a negative mammogram must not discourage biopsy of a clinically suspicious lesion. Electronically Signed By: Tahir wagner/debra:02/03/2023 08:51:14 copy to: [facility] TOLLIVER letter sent: Normal Exam ACR BI-RADS Category 1: Negative 3341F
--- NOTE | 2023-02-03 07:12 | DI.US.S_ITS ---
PROCEDURE: US THYROID INDICATIONS: NODULES TECHNIQUE: Real-time scanning was performed of the thyroid gland, with image documentation. COMPARISON: [facility], US, US THYROID, 12/13/2021, 15:01. FINDINGS: Right: 5.4 x 1.4 x 1.9 cm Left: 5.5 x 1.4 x 1.6 cm Isthmus: 0.3 cm. Nodule 1: Left superior region . 7 x 4 x 6 mm. No dedicated follow-up is necessary. Nodule 2: Left inferior region. 19 x 15 x 16 mm, previously 19 x 12 x 13 mm. It is solid and isoechoic. Macro calcifications are present. Moderately suspicious. TR 4. Sampling is recommended. Nodule 3: Right mid region. 11 x 6 x 8 mm, previously 10 x 6 x 8 mm. It is solid and hypoechoic. Lobulated contour. Moderately suspicious. TR 4. Follow-up is recommended. Nodule 4: Right inferior. 7 x 6 x 6 mm. No dedicated follow-up is necessary. IMPRESSION: Thyroid nodules as above. Sampling is recommended for nodule 2. Followup recommended for nodule 3. ACR TI-RADS definitions and recommendations: TI-RADS 1 (benign): 0 points. FNA not needed. TI-RADS 2 (not suspicious): 2 points. FNA not needed. TI-RADS 3 (mildly suspicious): 3 points. * FNA if 2.5 cm or larger, follow up if 1.5 cm or larger (at 1, 3, and 5 years). TI-RADS 4 (moderately suspicious): 4-6 points. * FNA if 1.5 cm or larger, follow up if 1 cm or larger (at 1, 2, 3, and 5 years). TI-RADS 5 (highly suspicious): 7 points or more. * FNA if 1 cm or larger, follow up if 0.5 cm or larger (every year for 5 years). Dictated by: Naeem Montgomery M.D. on 02/03/2023 at 11:19 Approved by: Naeem Montgomery M.D. on 02/03/2023 at 11:24
== END ==
PROVIDERS: PCP Nurse Practitioner; Referring Provider Internal Medicine Hematology & Oncology; Visit Provider Internal Medicine Hematology & Oncology
DX: D05.12 Intraductal carcinoma in situ of left breast (principal); E04.2 Nontoxic multinodular goiter; Z12.31 Encounter for screening mammogram for malignant neoplasm of breast
CPT/HCPCS: 76536; 77063; 77067

== ENCOUNTER → 2023-04-13 07:57 | Outpatient (CLI) | payer BC, SELFPAY ==
--- NOTE | 2023-04-13 | PATH_ITS ---
Note [facility] Accession Number: [id number] TESTS RESULT FLAG UNITS REF RANGE LAB Clinician Provided Cytology Information No. of containers..01 Other (Miscellaneous) No. of containers..02 Previously Prepared Cytology Slide Source: LEFT INFERIOR THYROID NODULE #2 DIAGNOSIS: LEFT INFERIOR THYROID NODULE #2 INCONCLUSIVE. [place] CATEGORY III. ATYPIA OF UNDETERMINED SIGNIFICANCE. MOLECULAR STUDIES REQUESTED; RESULTS WILL BE REPORTED SEPARATELY. Pathologist ICD10: R89.6 Signed out by: Loraine Antonio MD, Pathologist NPI- [id number] Performed by: Rey Chin, Fence Installer ([facility]) Gross description: 30 CC, PINK, CLEAR RECIEVED: IN CYTOLYT WITH 6 ALCOHOL FIXED AND 6 QUICK STAINED SLIDES ALSO 1 RNA VIAL WAS RECEIVED.VO /VDU 04/14/2023 0649 Local FLAG LEGEND: L-Low Normal,H-High Normal,LL-Alert Low,HH-Alert High <-Panic Low,>-Panic High,A-Abnormal,AA-Critical Abnormal Performed at: 01 =[facility] [address], [place] [address] Yan Lal MD, Performed at: 01 [facility] [address], [place], [place] [id number] MD Yan Lal MD Phone: [phone]
--- NOTE | 2023-04-13 07:58 | DI.US.S_ITS ---
PROCEDURE: US FINE NEEDLE ASPIRATION INDICATIONS: ASPIRATION OF LEFT THYROID INFERIOR NODULE #2 TECHNIQUE: The indications, alternatives, benefits, risks, and complications of the procedure were explained to the patient. Written informed consent was obtained and placed in the chart. The thyroid region was examined sonographically and a site was chosen for ultrasound guided percutaneous sampling. The skin was prepared and draped in the usual fashion, and anesthetized with 1% lidocaine infiltrated from the skin down to the thyroid gland. Multiple passes were then performed, with contents emptied into an appropriate pathology specimen container. A bandage was applied to the area of access at completion of the study. COMPARISON: [facility], US, US THYROID, 02/03/2023, 7:23. FINDINGS: Location(s) of lesion(s) sampled: Left lobe inferior, nodule #2 [place]: 25 gauge hypodermic needles. Number of passes: 6 Medications: 1% lidocaine for local anaesthesia. Complications: None. IMPRESSION: Successful ultrasound-guided thyroid nodule fine needle aspiration, with cytology results pending. Please see chart below for management recommendations based on cytology results. [place] [facility] ReportingRecommendationsNon-diagnostic* Repeat US-guided FNA, with on-site cytology evaluation if possible. * Repeated non-diagnostic nodules without high suspicion US features: close observation vs surgical consult. * Consider surgery if nodule has high suspicion US features, grows >20% in 2 dimensions on followup, or patient has clinical risk factors for malignancy. Benign* If nodule has high suspicion US features: repeat US and FNA within 12 months. * If nodule has low to intermediate suspicion US features: repeat US at 12-24 months. If nodule grows (20% increase in at least 2 dimensions, with minimal increase of 2 mm or >50% change in volume), or development of new suspicious US features, then repeat FNA or continue followup. * If nodule has very low suspicion US features: followup US at >24 months. Atypia of undetermined significance, follicular lesion of undetermined significanceRepeat FNA, molecular testing, followup US, or surgical consult.Follicular neoplasm, suspicious for follicular neoplasmSurgical consult; also consider molecular testing. Suspicious for malignancySurgical consult.MalignantSurgical consult. Dictated by: Da Hernandez M.D. on 04/13/2023 at 9:57 Approved by: Da Hernandez M.D. on 04/13/2023 at 10:08
== END ==
PROVIDERS: PCP Nurse Practitioner; Referring Provider Nurse Practitioner; Visit Provider Nurse Practitioner
DX: E04.1 Nontoxic single thyroid nodule (principal)
CPT/HCPCS: 10005

== ENCOUNTER 2023-08-05 07:35 | Day surgery (SDC) | payer BC, SELFPAY ==
[2023-07-30 13:08] VITALS: BMI 29.1
--- NOTE | 2023-08-04 15:52 | PM.HP.1 ---
History of Present Illness History of Present Illness Date Patient Seen: 08/04/23 Chief complaint: Left Partial thyroidectomy Narrative: Ms Gavin is a 58 year old healthy woman with a chronic left thyroid nodule. Thyroid ultrasound January 2023 RIGHT LEFT 1 11mm-mod suspicious 19mm (inferior) with calcifications-moderately suspicious TI RADS 4 2 7mm-no f/u necessary 7mm (superior) no f/u necessary Ultrasound-guided biopsy of the left inferior thyroid nodule performed April 13, 2023 demonstrates [place] category 3, atypia of undetermined significance. Subsequent molecular testing was performed from the thyroid FNA which demonstrates moderate to high risk of malignancy, 65-75%. TSH 1.25 normal. No compressive symptoms. No family history of thyroid malignancy although her father had some form of benign thyroid disease. She had radiation of the left chest several years ago for management of DCIS. [facility] Medical History Witnessed episode of apnea Soft palate edema Snoring Alcohol use Malaria (~2005) Retinal detachment (~2015) Thyroid nodule (~2017) DCIS (ductal carcinoma in situ) Surgical History (Updated 07/30/23 @ 13:37 by Janet Lucero RN) History of partial mastectomy of left breast (01/24/20) Cataract extraction status, left eye Anesthesia History of lumpectomy (~2016) History of left knee surgery (~2000) History of discectomy (~2009) Retinal detachment Family History Father Prostate cancer Hypertension Dementia Mother Pulmonary embolism Grandfather History of heart disease Grandfather History of emphysema Grandmother Hypertension Social History household members: spouse and children Smoking Status: Never smoker alcohol intake: current substance use type: does not use Meds Home Medications and Allergies Home Medications Medication Instructions Recorded Confirmed Type No Known Home Medications 05/16/21 07/30/23 History Allergies Allergy/AdvReac Type Severity Reaction Status Date / Time No Known Drug Allergies Allergy Verified 08/05/23 08:12 Exam Narrative Exam Narrative: Gen-Adult woman alert and oriented Neck-Left thyroid marked with my initials Assessment & Plan Assessment and plan (1) Left thyroid nodule: Status: Acute Assessment & Plan narrative: Ms. Gavin is a 58-year-old healthy woman with normal thyroid function and a enlarging left thyroid nodule. She has a 2 cm nodule of the inferior left thyroid which was moderately suspicious on imaging, biopsy pathology which demonstrates atypia of unknown significance. Molecular studies demonstrate moderate risk of malignancy in the range of 65-75%. We have discussed management options both nonoperative with active surviellence vs left partial thyroidectomy which is her preference. We discussed operative risks including but not limited to hemorrhage, infection, need for further treatment based on pathology findings, damage to surrounding structures including laryngeal nerves. She provides her written and verbal consent to proceed. Left partial thyroidectomy
[2023-08-05] VITALS (11 sets, daily range): BP systolic 133–150; BP diastolic 79–95; PULSE 64–94; RESP 10–16; TEMP 36.9–37.7; O2SAT 92–99; BMI 29.2
--- NOTE | 2023-08-05 | PATH_ITS ---
[facility] Accession Number: [id number] No. of containers..01 Tissue . 01 Material submitted: . thyroid gland - LEFT THYROID . 01 Diagnosis: Left Thyroid, Partial thyroidectomy: Multinodular hyperplasia, see comment. Changes consistent with prior procedure. No evidence of malignancy. MRV 08/20/2023 1331 Local . 01 Comment: A. There is one 3 mm nodule (block A5) with focal prominent nuclear atypia, most suggestive of possible treatment effect. A separate nodule (block A8-A9) shows changes compatible with prior procedure/FNA. There is no evidence of malignancy. . 01 Electronically signed: . Cally King MD, Pathologist NPI- [id number] . 01 Gross description: . The specimen is received in formalin labeled with the patient's name, , and left thyroid, consists of an unoriented lobe of thyroid with orientation presumed due to anatomic structure. The specimen measures 4.0 cm from superior to inferior, 2.9 cm from medial to lateral, and 1.1 cm from anterior to posterior, and weighs 7 grams. A nodule is identified on the inferolateral aspect measuring 1.5 x 1.2 x 1.0 cm. The anterior surface is inked blue, the posterior surface is inked black, the isthmus margin is inked orange, and the nodule is inked green. The specimen is serially sectioned from superior to inferior into 11 slices. The cut surface of the nodule is heterogeneous, solid to cystic, and has areas of hard capsule consistent with calcification. The nodule is within slices 6-10. Two additional small gusman areas are identified ranging from 0.3 x 0.1 x 0.1 cm to 0.3 x 0.2 x 0.1 cm. The first is found within slices 2 and 3, while the second id found within slice 5, appeared grossly distinct. The remaining cut surfaces are brown, slightly cystic with gelatinous areas, and no additional lesions identified. The specimen is submitted entirely as follows: . A1: Slice 1 perpendicular. A2: Slice 2 with small white nodule. A3: Slice 3 with small white nodule. A4: Slice 4 with cystic area. A5: Slice 5 with small white nodule. A6: Slice 6. A7: Slice 7. A8: Slice 8. A9: Slice 9. A10: Slice 10. A111: Slice 11 perpendicular. . Sections with calcification are submitted for brief decalcification. ([id number]) /MRV 08/06/2023 1221 Local . 01 Pathologist provided ICD-10: E04.2 . 01 CPT . 118723 Performed at: 01 [facility] [address] [place] [address], [place], [place] [id number] MD Yan Lal MD Phone: [phone]
[2023-08-05] MEDS: LACTATED RINGERS 1,000 ML 21 ML IV ×2 (08:12→10:19)
[2023-08-05] MEDS: CEFAZOLIN 2 GM/100 ML PREMIX 100 ML IV (09:00)
--- NOTE | 2023-08-05 09:32 | SUR.OPER ---
Supine on padded OR bed, head on pillow, arms padded and tucked at sides, legs uncrossed, safety belt at thigh, tape over blanket over lower legs .
[2023-08-05] MEDS: BUPIVACAINE 0.25% (PF) VIAL 30 ML INJ (09:48)
--- NOTE | 2023-08-05 11:17 | PM.OP.1 ---
Operative Date/Time/Diagnoses Date of procedure: 08/05/23 Time of procedure: 11:17 Pre-op diagnosis: left thyroid nodule Post-op diagnosis: same Procedure & Clinicians Procedure: left hemithyroidectomy Same procedure as scheduled: Yes Indications: 2 cm left thyroid nodule biopsy demonstrates atypical cells of unknown significance and molecular studies are suspicious for malignancy. She is here for a left skyler thyroidectomy Surgeon: Kalpesh Orozco Access Director: Shama Soriano Anesthesia Type: General Operative Notes Findings: 2cm left thyroid nodule Specimen(s): other (left thyroid lobe) Estimated Blood Loss (mL): 10 Procedure in detail: Patient was brought to the operating room and placed supine on the table. Bilateral lower extremity compression devices were applied. General anesthesia was induced and he was intubated with an endotracheal tube. 2 g of Ancef were infused prior to skin incision. A shoulder roll was placed to extend the neck. She was prepped and draped in sterile fashion. A time-out was performed to ensure the correct patient procedure necessary equipment within the operating room. A 6 cm collar incision 2 fingerbreadths above the sternal notch was made in the natural skin crease of the neck. The subcutaneous tissue was divided as well as the platysma using electrocautery. Subplatysmal flaps were developed in all directions. The midline raphe between the strap muscles was opened vertically along the direction of its fibers. The left thyroid lobe was prominent. The superior pole of the thyroid was approached 1st. The superior pole vessels were divided between silk suture close to the thyroid capsule. Next the inferior pole was approached and the strap muscles were carefully dissected away from the thyroid. The thyroid was then mobilized medial and anterior and this provided exposure of the recurrent laryngeal nerve running in the tracheoesophageal groove. The superior and inferior parathyroid glands were identified and protected. The middle thyroid vein was ligated and divided. The thyroid lobe was then dissected off of the trachea in its entirety and passed off the field as specimen. The field was copiously irrigated with water and hemostasis was achieved. A Valsalva was provided and there was no evidence of hemorrhage. The left thyroid bed was then dressed with Surgicel. Strap muscles were reapproximated using 3 0 Vicryl and the platysma with 4 0 Maxon. The skin was closed with a running 4-0 Monocryl suture followed by the application of Dermabond. Patient tolerated the procedure well. She emerged from anesthesia was extubated and transferred to the postoperative care unit in stable condition. Complications: none Post-operative Condition: stable Disposition: same day surgery
[2023-08-05] MEDS: OXYCODONE IR 5 MG TABLET PO (11:35)
== END 2023-08-05 12:45 | disposition home or self-care (01) ==
PROVIDERS: PCP Nurse Practitioner; Referring Provider Surgery; Visit Provider Surgery
PROC: (CPT 60210; principal; 2023-08-05 08:45)
DX: E04.2 Nontoxic multinodular goiter (principal)
CPT/HCPCS: 60210; 82962; J0330; J0690; J1100; J1170; J2250; J2405; J2704; J3010; J3490

== ENCOUNTER → 2024-04-11 11:28 | Outpatient (CLI) | payer BC, SELFPAY ==
[2024-04-11 12:56] LABS: Add Manual Diff / Slide Review NO; Basophils Absolute Auto 100 /uL (0-100); Basophils Percent Auto 1.1 % (0-2); Eosinophils Absolute Auto 100 /uL (0-450); Eosinophils Percent Auto 2.9 % (2-4); Hematocrit 38.7 % (36-46); Hemoglobin 13.1 g/dL (12.0-16.0); Lymphocytes Absolute Auto 1800 /uL (1100-4500); Lymphocytes Percent Auto 38.2 % (25-40); Mean Corpuscular HGB Conc 33.8 % (30-36); Mean Corpuscular Hemoglobin 30.5 PG (26-34); Mean Corpuscular Volume 90.2 fL (80-100); Monocytes Absolute Auto 400 /uL (0-900); Monocytes Percent Auto 7.5 % (3-14); Neutrophils Absolute Auto 2400 /uL (1500-7000); Neutrophils Percent Auto 50.3 % (50-75); Platelet Count 255 X10^3/uL (150-400); Red Blood Cell Count 4.29 X10^6/uL (4.0-5.2); Red Cell Distribution Width 13.2 % (11.6-14.8); White Blood Cell Count 4.7 X10^3/uL (4.5-11.0)
[2024-04-11 13:26] LABS: Alanine Aminotransferase 21 IU/L (<35); Albumin 4.3 g/dL (3.5-5.0); Albumin Globulin Ratio 1.5 (1.0-2.8); Alkaline Phosphatase 62 U/L (38-126); Aspartate Aminotransferase 23 IU/L (14-36); BUN Creatinine Ratio 21.3 (6-22); Bilirubin Total 0.9 mg/dL (0.2-1.3); Blood Urea Nitrogen 16 mg/dL (7-17); Calcium 9.6 mg/dL (8.4-10.2); Carbon Dioxide 26 mmol/L (22-32); Chloride 103 mmol/L (98-107); Cholesterol 315 mg/dL (140-199); Estimated Glomerular Filt Rate > 60 mL/min (>60); Globulin 2.8 g/dL (1.7-4.1); Glucose 93 mg/dL (70-100); HEMOLYSIS < 15 (0-50); Potassium 4.4 mmol/L (3.4-5.1); Sodium 138 mmol/L (137-145); Total Protein 7.1 g/dL (6.3-8.2); Triglycerides 60 mg/dL (35-150)
[2024-04-11 13:36] LABS: HDL Cholesterol 118 mg/dL (40-60); LDL Cholesterol Calculated 185 mg/dL (<100)
[2024-04-11 13:39] LABS: Free T3, Triiodothyronine Free 4.07 pg/mL (2.77-5.27); Free T4, Direct Thyroxine 1.09 ng/dL (0.78-2.19)
[2024-04-11 13:53] LABS: Thyroid Stimulating Hormone 2.21 uIU/mL (0.47-4.68)
[2024-04-11 16:18] LABS: Creatinine Urine Random 72.98 mg/dL
[2024-04-11 16:20] LABS: Microalbumin Urine Random 0.7 mg/dL (0-1.6)
== END ==
LOC: LAB 11:29
PROVIDERS: PCP Nurse Practitioner; Referring Provider Nurse Practitioner; Visit Provider Nurse Practitioner
DX: Z00.00 Encounter for general adult medical examination without abnormal findings (principal)
CPT/HCPCS: 36415; 80053; 80061; 82043; 82570; 84439; 84443; 84481; 85025